=== PATIENT | female | born 1980 | race African-American/Black ===

== ENCOUNTER 2018-02-15 11:37 | Emergency (ER) | payer MEDICAID, OTHER ==
[~2018-02-15] VITALS: Ht 167.6 cm; Wt 86.2 kg
[~2018-02-15 11:37] MED LIST: BENTYL10 MG ORAL; IBUPROFEN600 MG PO; NORCO 5-325 TA1 EACH PO
[2018-02-15 11:44] VITALS: BP 110/69
[2018-02-15] MEDS ORDERED: Albuterol/Ipratropium 3ml neb HHN ONE (12:15)
--- NOTE | 2018-02-15 12:18 | Emergency Room Report ---
History of Present Illness General Chief Complaint: Flu Like Symptoms Source: Patient Present Illness HPI 37-year-old female presents to the emergency department complaining of cough, mucus production, nasal congestion 3 days. Pt. reports 8/10 in severity pain in the chest wall exacerbated only when coughing. Patient reports that she has felt hot on the first day however she did not measure any fevers she denies chills she reports history of asthma only when she gets sick. Denies recent travel or ill contacts.Denies sore throat, ear pain, high fevers, lethargy, neck pain/stiffness, irritability, photophobia dehydration, N/V/D. Denies Cp, Palpitations, LOC, AMS, seizures, paresthesias, or changes in Hearing or vision , no Sudden severe GODOY. Denies cardiac Hx. denies hx of GERD. denies abdominal pain. Allergies: Coded Allergies: No Known Allergies (Unverified , 04/06/13) Patient History Past Medical History: see triage record Past Surgical History: none Pertinent Family History: none Reviewed Nursing Documentation: PMH: Agreed, PSxH: Agreed Nursing Documentation-PMH Past Medical History: No Stated History Review of Systems All Other Systems: negative except mentioned in HPI Physical Exam Vital Signs Date Time Temp Pulse Resp B/P (MAP) Pulse Ox O2 Delivery O2 Flow Rate FiO2 02/15/18 11:41 98.0 83 20 110/69 99 Room Air 98.1 Sp02 EP Interpretation: reviewed, normal General Appearance: no apparent distress, alert, GCS 15, non-toxic Head: normocephalic, atraumatic Eyes: bilateral eye normal inspection, bilateral eye PERRL ENT: hearing grossly normal, normal voice Neck: full range of motion Respiratory: chest non-tender, lungs clear, normal breath sounds, no respiratory distress, no accessory muscle use, speaking full sentences, wheezing Cardiovascular #1: regular rate, rhythm, no edema, normal capillary refill Musculoskeletal: back normal, gait/station normal, normal range of motion, non- tender Neurologic: alert, oriented x3, responsive, motor strength/tone normal, sensory intact, speech normal, grossly normal Psychiatric: judgement/insight normal Skin: normal color, no rash, warm/dry, well hydrated Lymphatic: no adenopathy Medical Decision Making PA Attestation Dr. Bailey is my supervising Physician whom patient management has been discussed with. Diagnostic Impression: Primary Impression: Upper respiratory infection, acute ER Course 37-year-old female presents to the emergency department complaining of cough, mucus production, nasal congestion 3 days. Patient reports that she has felt hot on the first day however she did not measure any fevers she denies chills she reports history of asthma only when she gets sick. Denies recent travel or ill contacts.Denies sore throat, ear pain, high fevers, lethargy, neck pain/ stiffness, irritability, photophobia dehydration, N/V/D. Denies Cp, Palpitations , LOC, AMS, seizures, paresthesias, or changes in Hearing or vision, no Sudden severe GODOY. Ddx considered but are not limited to URI, pneumonia, PE, strep pharyngitis, meningitis. Vital signs: Pt. is afebrile, the remaining VS are WNL H&PE are most consistent with URI- no meningeal signs, oropharynx is not involved, no evidence of bacterial infection at this time. ORDERS: none required at this time, the diagnosis is clinical ED INTERVENTIONS: -Albuterol Nebulized --PT. EDUCATION: Discussed antibiotic resistance with inappropriate prescribing of antibiotics for viral illnesses. Discussed signs and symptoms to indicate viral illness versus bacterial illness. DISCHARGE: At this time pt. is stable for d/c to home. Will provide printed patient care instructions, and any necessary prescriptions. Care plan and follow up instructions have been discussed with the patient prior to discharge. Last Vital Signs Date Time Temp Pulse Resp B/P (MAP) Pulse Ox O2 Delivery O2 Flow Rate FiO2 02/15/18 11:44 98.1 83 20 110/69 99 Room Air 98.1 Disposition: HOME, SELF-CARE Condition: Stable Scripts Albuterol Sulfate* (ALBUTEROL SULFATE MDI*) 8.5 Gm Hfa.aer.ad 2 PUFF INH Q4H, #1 INH 0 Refills Prov: Tonya Oliver 02/15/18 Loratadine/Pseudoephedrine (CLARITIN-D 12 HOUR TABLET) 1 Each Tab.er.12h 1 TAB ORAL EVERY 12 HOURS for 7 Days, #14 TAB Prov: Tonya Oliver 02/15/18 Oxymetazoline HCl (Afrin) 15 Ml [place] 2 SPRAYS NASAL TWICE A DAY for 3 Days, #15 SPRAY Prov: Tonya Oliver 02/15/18 Guaifenesin (Guaifenesin) 1,200 Mg Tab.er.12h 1200 MG PO BID, #20 TAB Prov: Tonya Oliver 02/15/18 Codeine/Promethazine Hcl* (PROMETHAZINE-CODEINE SYRUP*) 118 Ml Syrup 5 ML ORAL Q6H Y for For Cough, #120 ML 0 Refills Prov: Tonya Oliver 02/15/18 Patient Instructions: Upper Respiratory Infection, Adult, [id number] Additional Instructions: Take medications as directed. Follow up with a Primary Care Provider in 3-5 days, even if your symptoms have resolved. --Please review list of primary care clinics, if you do not already have a primary care provider Return sooner to ED if new symptoms occur, or current symptoms become worse. Do not drink alcohol, drive, or operate heavy machinery while taking Cough Syrup as this may cause drowsiness. - Please note that this Emergency Department Report was dictated using [employer] take out worker technology software, occasionally this can lead to erroneous entry secondary to interpretation by the dictation equipment. Tonya Oliver Feb 15, 2018 12:18
[2018-02-15] MEDS ORDERED: AFRIN NASAL SPR30 ML NASAL (12:58)
[2018-02-15] MEDS ORDERED: PROMETHAZINE-C118 M1 ORAL (12:58)
[2018-02-15] MEDS ORDERED: CLARITIN-D 121 EAC1 ORAL (12:58)
[2018-02-15] MEDS ORDERED: ALBUTEROL SULF8.5 GM INH (12:58)
[2018-02-15] MEDS ORDERED: GUAIFENESIN1200 MG PO (12:58)
[2018-02-15 13:19] VITALS: BP 122/78
== END 2018-02-15 13:18 | disposition home or self-care (01) ==
LOC: EMR 12:30
DX: J06.9 Acute upper respiratory infection, unspecified (principal)
CPT/HCPCS: 94640; 94664; 99284; J7620

== ENCOUNTER 2018-12-26 04:37 | Emergency (ER) | payer OTHER ==
[~2018-12-26] VITALS: Ht 170.2 cm; Wt 86.2 kg
[~2018-12-26 04:37] MED LIST changes: +AFRIN NASAL SPR30 ML NASAL; +ALBUTEROL SULF8.5 GM INH; +CLARITIN-D 121 EAC1 ORAL; +GUAIFENESIN1200 MG PO; +PROMETHAZINE-C118 M1 ORAL
[2018-12-26] MEDS ORDERED: NKM (04:46)
[2018-12-26 04:56] VITALS: BP 106/77
--- NOTE | 2018-12-26 04:58 | NUR ---
ER Nurse Note: Pt came from home c/o pressure and pain in pelvic area since Thursday morning, 12/24. Pt stated pain is 7/10; worse when sitting and prior voiding. Pt stated no burning, redness, swelling, no discharge. A&ox4, VSS, no signs of distress. ERMD at pt side; will continue to montior.
[2018-12-26 05:08] LABS: APPEARANCE,URINE CLEAR; BILIRUBIN, URINE NEGATIVE (NEGATIVE); COLOR,URINE PALE YELLOW; GLUCOSE, URINE (UA) NEGATIVE (NEGATIVE); KETONES,URINE NEGATIVE (NEGATIVE); LEUKOCYTE ESTERASE ,URINE NEGATIVE (NEGATIVE); NITRITE,URINE NEGATIVE (NEGATIVE); PH,URINE 5 (4.5-8.0); PROTEIN,URINE NEGATIVE (NEGATIVE); UROBILINOGEN,URINE NORMAL MG/DL (0.0-1.0)
[2018-12-26] MEDS ORDERED: NITROFURANTOIN100 M2 ORAL (05:15)
--- NOTE | 2018-12-26 05:20 | Emergency Room Report ---
History of Present Illness General Chief Complaint: Female Urogenital Problems Source: Patient Present Illness HPI Patient presents with complaints of pressure in her bladder area Some increased urination Relieving of pressure after urination Denies any fevers or chills denies any dysuria Denies any abdominal pain denies any vaginal discomfort or discharge Allergies: Coded Allergies: No Known Allergies (Unverified , 04/06/13) Patient History Past Medical History: see triage record Pertinent Family History: none Now: No Reviewed Nursing Documentation: PMH: Agreed; PSxH: Agreed Nursing Documentation-PMH Past Medical History: No History, Except For Review of Systems All Other Systems: negative except mentioned in HPI Physical Exam Vital Signs Date Time Temp Pulse Resp B/P (MAP) Pulse Ox O2 Delivery O2 Flow Rate FiO2 12/26/18 04:38 98.4 88 12 106/77 99 Room Air Sp02 EP Interpretation: reviewed, normal General Appearance: well appearing, no apparent distress Head: normocephalic, atraumatic Eyes: bilateral eye PERRL, bilateral eye EOMI ENT: hearing grossly normal, normal pharynx, TMs + canals normal, uvula midline Neck: full range of motion, supple, no meningismus, no bony tend Respiratory: lungs clear, normal breath sounds, no rhonchi, no respiratory distress, no retraction, no accessory muscle use Cardiovascular #1: normal peripheral pulses, regular rate, rhythm, no edema, no gallop, no JVD, no murmur Gastrointestinal: normal bowel sounds, non tender, soft, no mass, no organomegaly, non-distended, no guarding, no hernia, no pulsatile mass, no rebound Genitourinary: no CVA tenderness Musculoskeletal: normal inspection Neurologic: oriented x3, responsive, armament repairer III-XII nml as tested, motor strength/ tone normal, sensory intact Psychiatric: mood/affect normal Skin: normal color, no rash, warm/dry, palpation normal Lymphatic: normal inspection, no adenopathy Medical Decision Making Diagnostic Impression: Primary Impression: uti ER Course Several differential considered Patient's abdomen is otherwise soft Discomfort of pressure in the bladder area Concern for UTI is made patient urine sample is sent given the clinical history and complaints patient treated For this and will have further pending culturing Please note that the urine sample itself does not show clear signs of infection However given the patient's discomfort complaint initiated on antibiotics Patient also reported previous hysterectomy With the pressure sensation [employer] follow-up will be appropriate Patient does not meet criteria for any emergency imaging or ultrasound Labs Test 12/26/18 04:50 Urine Color Pale yellow Urine Appearance Clear Urine pH 5 (4.5-8.0) Urine Specific [place] 1.020 (1.005-1.035) Urine Protein Negative (NEGATIVE) Urine Glucose (UA) Negative (NEGATIVE) Urine Ketones Negative (NEGATIVE) Urine Blood Negative (NEGATIVE) Urine Nitrite Negative (NEGATIVE) Urine Bilirubin Negative (NEGATIVE) Urine Urobilinogen Normal MG/DL (0.0-1.0) Urine Leukocyte Esterase Negative (NEGATIVE) Urine HCG, Qualitative Negative (NEGATIVE) Last Vital Signs Date Time Temp Pulse Resp B/P (MAP) Pulse Ox O2 Delivery O2 Flow Rate FiO2 12/26/18 04:56 98.4 70 12 106/77 99 Room Air Status: improved Disposition: HOME, SELF-CARE Condition: Stable Scripts Nitrofurantoin Monohyd/M-Cryst* (MACROBID 100 MG*) 100 Mg Capsule 100 MG ORAL EVERY 12 HOURS for 7 Days, CAP Prov: Vero Baker DO 12/26/18 Referrals: [facility],REFERRING (PCP) Patient Instructions: Urinary Tract Infection Additional Instructions: Patient is provided with the discharge instructions notified to follow up with primary doctor in the next 2-3 days otherwise return to the er with any worsening symptoms. Please note that this report is being documented using [employer] technology. This can lead to erroneous entry secondary to incorrect interpretation by the dictating instrument. Vero Baker DO Dec 26, 2018 05:20
[2018-12-26 05:23] VITALS: BP 106/77
--- NOTE | 2018-12-26 05:23 | NUR ---
ER Nurse Note: Pt seen, treated, medically cleared by ERMD. Discharge instructions and prescriptions given with repeat verbalziation by pt. Instructed pt to follow up with primary care physican within one week. Pt a&ox4, VSS, no signs of distress. ID band removed. Pt left with all belongings via own transportaiton.
== END 2018-12-26 05:24 | disposition home or self-care (01) ==
LOC: EMR 04:50
DX: N39.0 Urinary tract infection, site not specified (principal)
CPT/HCPCS: 81003; 81025; 99283